=== PATIENT | male | born 1960 | race Caucasian/White ===

== ENCOUNTER 2016-10-08 12:23 | Emergency (ER) | payer OTHER ==
[~2016-10-08] VITALS: Ht 175.3 cm; Wt 84.0 kg
[~2016-10-08 12:23] MED LIST: FLEXERIL PO; ULTRAM50 M1 PO; VICOPROFEN PO
[2016-10-08] MEDS ORDERED: GENTAMICIN15 ML/BTL OS (13:49)
[2016-10-08 14:00] VITALS: BP 149/84
== END 2016-10-08 14:00 | disposition home or self-care (01) | DRG 115 ==
LOC: ED 12:23
PROC: 08C9XZZ Extirpation of Matter from Left Cornea, External Approach (ICD-10-PCS; principal; 2016-10-08)
DX: T15.02XA Foreign body in cornea, left eye, initial encounter (principal); I10 Essential (primary) hypertension; F17.210 Nicotine dependence, cigarettes, uncomplicated; X58.XXXA Exposure to other specified factors, initial encounter

== ENCOUNTER 2019-06-26 | Emergency (ER) | payer OTHER, MEDICARE ==
[~2019-06-26] MED LIST changes: +GENTAMICIN15 ML/BTL OS
[2019-06-26 18:03] LABS: HEMATOCRIT 41.8 % (39.0-50.0); HEMOGLOBIN 14.1 g/dl (14.0-18.0); IMMATURE GRANULOCYTES 0.5 % (0.0-5.0); MEAN CELL VOLUME 94.8 fL CALC (80.0-100.0); MEAN CORPUSCULAR HGB CONC 33.7 g/L CALC (32.0-36.0); NEUT# 6.93 thou/uL (1.82-7.42); RED BLOOD COUNT 4.41 mill/uL (4.70-6.10); RED CELL DISTRI WIDTH 12.4 % (11.5-15.5)
[2019-06-26 18:23] LABS: ALKALINE PHOSPHATASE 83 u/l (38-126); ANION GAP 14 (6-22 (CALC)); BILIRUBIN, TOTAL 0.4 mg/dL (0.0-1.4); BUN 11 mg/dL (9-20); BUN/CREATININE RATIO 11 (12-20 (CALC)); CARBON DIOXIDE 22 mmol/l (22-30); CHLORIDE 103 mmol/l (95-108); GFR > 60 ML/MIN (>=60 (CALC)); GFR FOR AFR.AMER. > 60 ML/MIN (>=60 (CALC)); POTASSIUM 4.1 mmol/l (3.5-5.1); SGOT/AST 21 u/l (17-59); SODIUM 135 mmol/l (137-146); TOTAL PROTEIN 7.1 g/dL (6.3-8.2)
[2019-06-26 18:28] LABS: ALBUMIN 4.1 g/dL (3.2-5.0)
[2019-06-26] MEDS ORDERED: ZITHROMAX250 MG PO (20:03)
[2019-06-26] MEDS ORDERED: TAM75CAP PO (20:03)
[2019-06-26] MEDS ORDERED: MEDDOSEPAK PO (20:03)
[2019-06-26] MEDS ORDERED: VENTOLIN H108 MCG/AC IN (20:03)
== END 2019-06-26 20:00 | disposition home or self-care (01) | DRG 195 ==
PROVIDERS: Family Medicine
DX: J10.00 Influenza due to other identified influenza virus with unspecified type of pneumonia (principal); I10 Essential (primary) hypertension; F17.200 Nicotine dependence, unspecified, uncomplicated